=== PATIENT | female | born 1985 | race Caucasian/White ===

== ENCOUNTER 2016-07-28 17:21 | Emergency (ER) | payer OTHER ==
[2016-07-28] MEDS ORDERED: SODIUM CHLORIDE 0.9% 1,000 ML IV STA ×2 (20:17)
[2016-07-28] MEDS ORDERED: HYDROmorphone 1 MG/ML 1 ML SYRINGE IVP STA (20:17)
[2016-07-28] MEDS ORDERED: ONDANSETRON 4 MG/2 ML VIAL IVP STA (20:17)
--- NOTE | 2016-07-28 20:27 | ED ---
General Adult HPI - General Chief complaint: Upper Respiratory Infection Stated complaint: kidney pain, vomiting Time Seen by Provider: 07/28/16 20:08 Source: patient, RN notes reviewed Mode of arrival: ambulatory Limitations: no limitations - History of Present Illness Initial comments: Patient is a 31-year-old female who presents emergency room today with multiple complaints. Patient does admit that she began having some right-sided flank pain that started approximately a week ago. She started was consistent with kidney infection that she's had once in the past. She does admit that she follow-up family doctor was started on antibiotics. States she did not get any better after 2 days of antibiotics with [facility] family doctor. States she was started on a different antibiotic. Patient states she's been taking this now for the last 3 or 4 days with no improvement. States she's been having some symptoms of diarrhea. Some abdominal pain. Does admit to history of colitis and states is somewhat similar. Admits that she's also had a headache. States appetites been somewhat decreased. Admits to nausea without any vomiting. Admits is felt hot and cold or chills. Patient denies any recent fever, chills , shortness of breath, chest pain, back pain, numbness or tingling, dysuria or hematuria, constipation, visual changes, or any other complaints. - Related Data Home Medications Medication Instructions Recorded Confirmed Citalopram Hydrobromide [CeleXA] 40 mg PO DAILY 07/28/16 07/28/16 Doxycycline (Unknown) 1 tab PO BID 07/28/16 07/28/16 Flagyl (Unknown) 1 tab PO BID 07/28/16 07/28/16 Loperamide [Imodium] 4 mg PO Q6H PRN 07/28/16 07/28/16 Metoprolol Succinate [Toprol XL] 25 mg PO DAILY 07/28/16 07/28/16 Topiramate [Topamax] 100 mg PO DAILY 07/28/16 07/28/16 Previous Rx's Medication Instructions Recorded Ondansetron Odt [Zofran ODT] 4 mg PO Q8HR PRN #15 tab 07/28/16 Allergies Allergy/AdvReac Type Severity Reaction Status Date / Time codeine Allergy Unknown Verified 07/28/16 20:00 peanut Allergy Unknown Verified 07/28/16 20:00 Review of Systems ROS Statement: Those systems with pertinent positive or pertinent negative responses have been documented in the HPI. ROS Other: All systems not noted in ROS Statement are negative. Past Medical History Past Medical History: No Reported History History of Any Multi-Drug Resistant Organisms: None Reported Past Surgical History: No Surgical Hx Reported Past Psychological History: Bipolar, Depression Smoking Status: Never smoker Past Alcohol Use History: Occasional Past Drug Use History: None Reported General Exam - General Exam Comments Initial Comments: General: The patient is awake and alert, in no distress, and does not appear acutely ill. Eye: Pupils are equal, round and reactive to light, extra-ocular movements are intact. No nystagmus. There is normal conjunctiva bilaterally. No signs of icterus. Ears, nose, mouth and throat: There are moist mucous membranes and no oral lesions. Neck: The neck is supple, there is no tenderness or JVD. Cardiovascular: There is a regular rate and rhythm. No murmur, rub or gallop is appreciated. Respiratory: Lungs are clear to auscultation, respirations are non-labored, breath sounds are equal. No wheezes, stridor, rales, or rhonchi. Gastrointestinal: Soft, non-distended, non-tender abdomen without masses or organomegaly noted. There is no rebound or guarding present. No CVA tenderness. Bowel sounds are unremarkable. Musculoskeletal: Normal ROM, no tenderness. Strength 5/5. Sensation intact. Pulses equal bilaterally 2+. Neurological: A&O x 3. CN II-XII intact, There are no obvious motor or sensory deficits. Coordination appears grossly intact. Speech is normal. Skin: Skin is warm and dry and no rashes or lesions are noted. Psychiatric: Cooperative, appropriate mood & affect, normal judgment. Limitations: no limitations Course Vital Signs 07/28/16 07/28/16 17:55 20:54 Temperature 98.9 F Pulse Rate 81 70 Respiratory 18 18 Rate Blood Pressure 129/61 113/66 O2 Sat by Pulse 95 98 Oximetry Medical Decision Making - Medical Decision Making Patient reexamined at this time shows no signs acute distress. Does not that she is feeling better. Her labs been reviewed shows negative white count. No fever. Vitals are stable. Rare bacteria seen in the urinalysis. Currently on antibiotics for UTI. Patient advised to increase oral fluids will be given nausea medication go home with. Advised follow-up the family doctor. Does admit that she has steroids at home that she's used the past with colitis. Advised follow-up family doctor about steroid taper. Advised return if any symptoms increase worsen or for any other concerns. Patient states her stay and 6. - Lab Data Result diagrams: 07/28/16 20:50 07/28/16 20:50 Lab Results 07/28/16 07/28/16 07/28/16 Range/Units 20:20 20:20 20:50 WBC (3.8-10.6) k/uL RBC (3.80-5.40) m/uL Hgb (11.4-16.0) gm/dL Hct (34.0-46.0) % MCV (80.0-100.0) fL MCH (25.0-35.0) pg MCHC (31.0-37.0) g/dL RDW (11.5-15.5) % Plt Count (150-450) k/uL Neutrophils % % Lymphocytes % % Monocytes % % Eosinophils % % Basophils % % Neutrophils # (1.3-7.7) k/uL Lymphocytes # (1.0-4.8) k/uL Monocytes # (0-1.0) k/uL Eosinophils # (0-0.7) k/uL Basophils # (0-0.2) k/uL Sodium 141 (137-145) mmol/L Potassium 3.9 (3.5-5.1) mmol/L Chloride 109 H (98-107) mmol/L Carbon Dioxide 22 (22-30) mmol/L Anion Gap 10 mmol/L BUN 13 (7-17) mg/dL Creatinine 1.00 (0.52-1.04) mg/dL Est GFR (MDRD) Af Amer >60 (>60 ml/min/1.73 sqM) Est GFR (MDRD) Non-Af >60 (>60 ml/min/1.73 sqM) Glucose 90 (74-99) mg/dL Calcium 9.0 (8.4-10.2) mg/dL Total Bilirubin 0.4 (0.2-1.3) mg/dL AST 17 (14-36) U/L ALT 30 (9-52) U/L Alkaline Phosphatase 48 (38-126) U/L Total Protein 6.4 (6.3-8.2) g/dL Albumin 3.8 (3.5-5.0) g/dL Amylase 67 (30-110) U/L Lipase 152 (23-300) U/L Urine Color Yellow Urine Appearance Cloudy H (Clear) Urine pH 6.5 (5.0-8.0) Ur Specific [place] 1.017 (1.001-1.035) Urine Protein Negative (Negative) Urine Glucose (UA) Negative (Negative) Urine Ketones Negative (Negative) Urine Blood Negative (Negative) Urine Nitrate Negative (Negative) Urine Bilirubin Negative (Negative) Urine Urobilinogen <2.0 (<2.0) mg/dL Ur Leukocyte Esterase Moderate H (Negative) Urine RBC 3 (0-5) /hpf Urine WBC 4 (0-5) /hpf Ur Squamous Epith Cells 4 (0-4) /hpf Urine Bacteria Rare H (None) /hpf Urine Mucus Rare H (None) /hpf Urine HCG, Qual Not Detected (Not Detectd) 07/28/16 Range/Units 20:50 WBC 5.0 (3.8-10.6) k/uL RBC 4.36 (3.80-5.40) m/uL Hgb 13.1 (11.4-16.0) gm/dL Hct 38.5 (34.0-46.0) % MCV 88.2 (80.0-100.0) fL MCH 30.1 (25.0-35.0) pg MCHC 34.1 (31.0-37.0) g/dL RDW 12.7 (11.5-15.5) % Plt Count 193 (150-450) k/uL Neutrophils % 69 % Lymphocytes % 19 % Monocytes % 7 % Eosinophils % 3 % Basophils % 1 % Neutrophils # 3.5 (1.3-7.7) k/uL Lymphocytes # 1.0 (1.0-4.8) k/uL Monocytes # 0.3 (0-1.0) k/uL Eosinophils # 0.1 (0-0.7) k/uL Basophils # 0.0 (0-0.2) k/uL Sodium (137-145) mmol/L Potassium (3.5-5.1) mmol/L Chloride (98-107) mmol/L Carbon Dioxide (22-30) mmol/L Anion Gap mmol/L BUN (7-17) mg/dL Creatinine (0.52-1.04) mg/dL Est GFR (MDRD) Af Amer (>60 ml/min/1.73 sqM) Est GFR (MDRD) Non-Af (>60 ml/min/1.73 sqM) Glucose (74-99) mg/dL Calcium (8.4-10.2) mg/dL Total Bilirubin (0.2-1.3) mg/dL AST (14-36) U/L ALT (9-52) U/L Alkaline Phosphatase (38-126) U/L Total Protein (6.3-8.2) g/dL Albumin (3.5-5.0) g/dL Amylase (30-110) U/L Lipase (23-300) U/L Urine Color Urine Appearance (Clear) Urine pH (5.0-8.0) Ur Specific [place] (1.001-1.035) Urine Protein (Negative) Urine Glucose (UA) (Negative) Urine Ketones (Negative) Urine Blood (Negative) Urine Nitrate (Negative) Urine Bilirubin (Negative) Urine Urobilinogen (<2.0) mg/dL Ur Leukocyte Esterase (Negative) Urine RBC (0-5) /hpf Urine WBC (0-5) /hpf Ur Squamous Epith Cells (0-4) /hpf Urine Bacteria (None) /hpf Urine Mucus (None) /hpf Urine HCG, Qual (Not Detectd) Disposition Clinical Impression: Abdominal pain, Colitis, UTI (urinary tract infection) Disposition: HOME SELF-CARE Condition: Good Instructions: Abdominal Pain (ED) Additional Instructions: Please follow-up the family doctor over the next 1-2 days as discussed. Please use medication as prescribed. Please return to emergency room if any symptoms increase or worsen or for any other concerns. Prescriptions: Ondansetron Odt [Zofran ODT] 4 mg PO Q8HR PRN #15 tab PRN Reason: Nausea Time of Disposition: 21:35
[2016-07-28 20:37] LABS: Appearance,Urine Cloudy (Clear); Bacteria,Urine Rare /hpf; Bilirubin,Urine Negative (Negative); Glucose,Urine (UA) Negative (Negative); Ketones,Urine Negative (Negative); Leukocyte Esterase,Urine Moderate (Negative); Mucus,Urine Rare /hpf; Nitrite,Urine Negative (Negative); PH, Urine 6.5 (5.0-8.0); Particle Count 3425; Protein,Urine Negative (Negative); RBC,Urine 3 /hpf (0-5); Specific Gravity,Urine 1.017 (1.001-1.035); Squamous Epithelial Cell,Urine 4 /hpf (0-4); UA Billing (MACRO vs. MICRO) MICRO; Urobilinogen,Urine <2.0 mg/dL (<2.0); WBC,Urine 4 /hpf (0-5)
--- NOTE | 2016-07-28 21:07 | XR ---
EXAMINATION TYPE: XR KUB DATE OF EXAM: 07/28/2016 9:01 PM COMPARISON: NONE HISTORY: Bilateral flank pain TECHNIQUE: 2 views FINDINGS: There is no sign of intestinal obstruction or pneumoperitoneum. There are colonic air-fluid levels consistent with diarrhea. The lung bases are clear. There are no pathologic calcifications ov er the kidneys. IMPRESSION: Colonic air-fluid levels consistent with diarrhea. No free air.
[2016-07-28 21:08] LABS: Basophils % (A) 1 %; CH 29.9; CHCM 34.1; Eosinophils # (A) 0.1 k/uL (0-0.7); Eosinophils % (A) 3 %; HCT 38.5 % (34.0-46.0); HDW 2.61; HGB 13.1 gm/dL (11.4-16.0); Luc % (Auto) 2; Lymphocytes % (A) 19 %; MCH 30.1 pg (25.0-35.0); MCHC 34.1 g/dL (31.0-37.0); MCV 88.2 fL (80.0-100.0); Monocytes # (A) 0.3 k/uL (0-1.0); Monocytes % (A) 7 %; Neutrophils # (A) 3.5 k/uL (1.3-7.7); Neutrophils % (A) 69 %; RBC 4.36 m/uL (3.80-5.40); RDW 12.7 % (11.5-15.5); WBC (Perox) 4.74
[2016-07-28 21:17] LABS: Anion Gap 10 mmol/L; Blood Urea Nitrogen 13 mg/dL (7-17); Carbon Dioxide 22 mmol/L (22-30); Chloride 109 mmol/L (98-107); Glucose 90 mg/dL (74-99); Non-African American GFR(MDRD) >60 (>60 ml/min/1.73 sqM); Potassium 3.9 mmol/L (3.5-5.1); Sodium 141 mmol/L (137-145)
[2016-07-28 21:18] LABS: ALT 30 U/L (9-52); AST 17 U/L (14-36); Alkaline Phosphatase 48 U/L (38-126); Amylase 67 U/L (30-110); Total Bilirubin 0.4 mg/dL (0.2-1.3); Total Protein 6.4 g/dL (6.3-8.2)
[2016-07-28] MEDS ORDERED: KETOROLAC 30 MG/ML 1 ML VIAL IVP STA (21:54)
[2016-07-28 23:04] VITALS: BP 116/72; PULSE 78; RESP 20; TEMP 97.5
== END 2016-07-28 23:05 | disposition home or self-care (01) ==
LOC: EC 17:21 → SUPCPDRO 17:21 → EC 23:05
DX: K52.9 Noninfective gastroenteritis and colitis, unspecified (principal); N39.0 Urinary tract infection, site not specified; R51 Headache; R11.0 Nausea; F31.9 Bipolar disorder, unspecified; Z79.899 Other long term (current) drug therapy; Z91.010 Allergy to peanuts; Z88.5 Allergy status to narcotic agent
CPT/HCPCS: 99283; 96374; 96375 ×2; 96361 ×2; 36415; 80053; 82150; 83690; 85025; 81001; 81025; 87086; 74000; J2405; J1885; J1170

== ENCOUNTER → 2023-07-09 | Outpatient (CLI) | payer BC ==
[2023-07-09 17:07] LABS: INR 0.9 (<1.2); Partial Thromboplastin Time 24.2 sec (22.0-30.0); Prothrombin Time 10.4 sec (10.0-12.5)
[2023-07-10 02:25] LABS: HCT 39.7 % (37.2-46.3); HGB 13.2 g/dL (12.0-15.0); MCHC 33.2 g/dL (32.0-37.0); MCV 90.2 FL (80.0-97.0); Mean Platelet Volume 9.9 FL (9.5-12.2); NRBC Per 100 WBC 0 X 10*3/uL (0.00-0.01); Platelet Count 311 X 10*3/uL (140-440); RDW 11.9 % (11.5-14.5); WBC 6.32 X 10*3/uL (4.50-10.00)
[2023-07-10 03:24] LABS: % Iron Saturation 16.57 (12.00-45.00); BUN/Creat Ratio 8.33 Ratio (12.00-20.00); Blood Urea Nitrogen 7.5 mg/dL (9.0-27.0); Chloride 100 mmol/L (96-109); Chol/HDL Ratio 2.18 Ratio; Glucose 91 mg/dL (70-110); Iron 55 UG/DL (50-170); LDL Cholesterol,Calculated 86.4 mg/dL (0.0-131.0); Magnesium 1.9 mg/dL (1.5-2.4); Phosphorus 4.1 mg/dL (2.4-5.1); Potassium 4.6 mmol/L (3.5-5.5); Sodium 138 mmol/L (135-145); Total Iron Binding Capacity 332 UG/DL (228-460); VLDL Calculation 11.58 mg/dL (5.00-40.00)
[2023-07-10 03:25] LABS: ALT 268 U/L (8-44); AST 103 U/L (13-35); Albumin 4.5 g/dL (3.8-4.9); Albumin/Globulin Ratio 2.05 Ratio (1.60-3.17); Alkaline Phosphatase 90 U/L (41-126); Calcium 9.9 mg/dL (8.7-10.3); Globulin 2.2 g/dL (1.6-3.3); Total Bilirubin 0.3 mg/dL (0.3-1.2); Total Protein 6.7 g/dL (6.2-8.2)
[2023-07-10 12:24] LABS: Zinc, Serum 68 ug/dL (60-130)
[2023-07-11 06:29] LABS: Vitamin A 58 ug/dL (38-106)
[2023-07-11 08:51] LABS: Vit B1(Thiamine) 56 ug/L (38-122)
== END | disposition home or self-care (01) ==
LOC: LABWHC1 15:58 → MERGE 15:58
PROVIDERS: ATTEND Surgery Plastic and Reconstructive Surgery
DX: E66.01 Morbid (severe) obesity due to excess calories (principal); E89.1 Postprocedural hypoinsulinemia; D50.8 Other iron deficiency anemias; K91.2 Postsurgical malabsorption, not elsewhere classified; E44.0 Moderate protein-calorie malnutrition; E44.1 Mild protein-calorie malnutrition; E55.9 Vitamin D deficiency, unspecified; K74.1 Hepatic sclerosis; N19 Unspecified kidney failure; T56.894A Toxic effect of other metals, undetermined, initial encounter; K50.90 Crohn's disease, unspecified, without complications
CPT/HCPCS: 36415; 80053; 80061; 82306; 82525; 82607; 82746; 83036; 83540; 83550; 83735; 83970; 84100; 84134; 84255; 84425; 84443; 84590; 84630; 85027; 85610; 85730